=== PATIENT | male | born 1945 | race Caucasian/White ===

== ENCOUNTER 2017-05-11 10:00 | Emergency (ER) | payer MEDICARE, OTHER, SELFPAY ==
[~2017-05-11] VITALS: Ht 170.2 cm; Wt 84.5 kg
[2017-05-11] MEDS ORDERED: SODIUM CHLORIDE 0.9% 1,000 ML IV ONE (11:35)
[2017-05-11] MEDS ORDERED: SODIUM CHLORIDE FLUSH 10ML SYR IVF ONE (12:00)
[2017-05-11] MEDS ORDERED: SODIUM CHLORIDE 0.9% 1,000ML IVBOLUS ONE (12:00)
[2017-05-11 12:07] LABS: BASOPHILS # (AUTO) 0.03 x10^3/uL (0-0.1); BASOPHILS % (AUTO) 0 % (0-1); EOSINOPHILS # (AUTO) 0.14 x10^3/uL (0-0.4); EOSINOPHILS % (AUTO) 2 % (1-7); LYMPHOCYTES # (AUTO) 1.81 x10^3/uL (1-3.4); LYMPHOCYTES % (AUTO) 25 % (22-44); MD NO; MEAN CORPUSCULAR HEMOGLOBIN 31.8 pg (27.5-34.5); MEAN CORPUSCULAR HGB CONC 33.8 g/dL (33.2-36.2); MEAN CORPUSCULAR VOLUME 94.1 fL (81-97); MEAN PLATELET VOLUME 8.4 fL (7.4-10.4); MONOCYTES # (AUTO) 0.66 x10^3/uL (0.2-0.8); MONOCYTES % (AUTO) 9 % (2-9); NEUTROPHILS # (AUTO) 4.74 x10^3/uL (1.8-6.8); NEUTROPHILS % (AUTO) 64 % (42-75); PLATELET COUNT 214 x10^3/uL (130-400); RED BLOOD COUNT 4.76 x10^6/uL (4.38-5.82); RED CELL DISTRIBUTION WIDTH 13.9 % (9.4-14.8)
[2017-05-11 12:37] LABS: ALANINE AMINOTRANSFERASE 20 U/L (12-78); ALBUMIN 3.7 g/dL (3.4-5.0); ALKALINE PHOSPHATASE 87 U/L (45-117); ANION GAP 9 mmol/L (5-15); BILIRUBIN,TOTAL 0.7 mg/dL (0.2-1.0); CALCIUM 8.6 mg/dL (8.5-10.1); CHLORIDE 112 mmol/L (98-107); CREATININE 0.87 mg/dL (0.7-1.3); TOTAL PROTEIN 6.9 g/dL (6.4-8.2)
[2017-05-11] MEDS ORDERED: OMNIPAQUE 350 MG/ML, 100ML BOTTLE ONE ×2 (13:10→13:15)
[2017-05-11 14:27] VITALS: BP 147/82
== END 2017-05-11 14:30 | disposition home or self-care (01) ==
LOC: ED 12:21
DX: R10.30 Lower abdominal pain, unspecified (principal); R19.7 Diarrhea, unspecified; J44.9 Chronic obstructive pulmonary disease, unspecified; I10 Essential (primary) hypertension; G20 Parkinson's disease
CPT/HCPCS: 36415; 74177; 80053; 83605; 85025; 87040; 96360; 96361; 99285; J7030; Q9967

== ENCOUNTER 2018-10-01 17:31 | Inpatient (IN) | payer MEDICARE, OTHER ==
[~2018-10-01] VITALS: Ht 172.7 cm; Wt 89.4 kg
--- NOTE | 2018-10-01 17:44 | NUR ---
BIB [facility] FOR CHEST PRESSURE WITH ASSOCIATED NAUSEA, SOB. RECENTLY STOPPED SPIRONOLACTONE BC PCP TOLD PT BP WAS LOW. GIVEN NS 250, ASA, ZOFRAN, NITRO WITH CP RELIEF. PT STATES "I KEEP TELLING THEM MY MEDICATIONS ARE MAKING ME SICK BUT NOONE WILL CHANGE THEM". PT PLACED ON MONITOR. VSS. EKG DONE AND PA AT BEDSIDE
[2018-10-01 18:18] LABS: BASOPHILS # (AUTO) 0.05 x10^3/uL (0-0.1); BASOPHILS % (AUTO) 1 % (0-1); EOSINOPHILS # (AUTO) 0.27 x10^3/uL (0-0.4); EOSINOPHILS % (AUTO) 4 % (1-7); LYMPHOCYTES # (AUTO) 1.79 x10^3/uL (1-3.4); LYMPHOCYTES % (AUTO) 26 % (22-44); MD NO; MEAN CORPUSCULAR HEMOGLOBIN 32.1 pg (27.5-34.5); MEAN CORPUSCULAR HGB CONC 33.2 g/dL (33.2-36.2); MEAN CORPUSCULAR VOLUME 96.6 fL (81-97); MEAN PLATELET VOLUME 8.6 fL (7.4-10.4); MONOCYTES # (AUTO) 0.71 x10^3/uL (0.2-0.8); MONOCYTES % (AUTO) 10 % (2-9); NEUTROPHILS # (AUTO) 4.11 x10^3/uL (1.8-6.8); NEUTROPHILS % (AUTO) 59 % (42-75); PLATELET COUNT 220 x10^3/uL (130-400); RED BLOOD COUNT 4.48 x10^6/uL (4.38-5.82); RED CELL DISTRIBUTION WIDTH 13.9 % (9.4-14.8)
[2018-10-01 18:27] LABS: ALBUMIN 3.4 g/dL (3.4-5.0); ANION GAP 7 mmol/L (5-15); CALCIUM 8.3 mg/dL (8.5-10.1); CHLORIDE 114 mmol/L (98-107)
[2018-10-01 18:32] LABS: ALANINE AMINOTRANSFERASE 26 U/L (12-78); ALKALINE PHOSPHATASE 74 U/L (45-117); BILIRUBIN,TOTAL 0.3 mg/dL (0.2-1.0); CREATININE 1.27 mg/dL (0.7-1.3); TOTAL PROTEIN 6.6 g/dL (6.4-8.2); TROPONIN I < 0.015 ng/mL (0.000-0.045)
[2018-10-01] MEDS ORDERED: OMNIPAQUE 350 MG/ML, 100ML BOTTLE ONE (18:50)
--- NOTE | 2018-10-01 18:56 | NUR ---
PT TO CT
--- NOTE | 2018-10-01 19:18 | NUR ---
Break RN: patient back from CT scan. awaiting result.
--- NOTE | 2018-10-01 19:26 | NUR ---
ERP at bedside for re-evaluation.
--- NOTE | 2018-10-01 20:09 | NUR ---
REPORT TO MELINDA FRANK
[2018-10-01] MEDS ORDERED: TAMS-11 PO (20:14)
[2018-10-01] MEDS ORDERED: ATOR40TA78 PO (20:14)
[2018-10-01] MEDS ORDERED: SPIR25TA5 PO (20:14)
[2018-10-01] MEDS ORDERED: ASPI-515 PO (20:14)
[2018-10-01] MEDS ORDERED: VERA120T5 PO (20:14)
[2018-10-01] MEDS ORDERED: BENA40TA3 PO (20:14)
[2018-10-01] MEDS ORDERED: FLUT9.9S NS (20:14)
[2018-10-01] MEDS ORDERED: TIOT18CA INH (20:15)
[2018-10-01 20:58] VITALS: BP 131/72
[2018-10-01] MEDS ORDERED: LIDODERM 5% PATCH TD PRN (23:30)
[2018-10-01] MEDS ORDERED: hydrALAzine 20 MG/ML, 1ML IVPush PRN (23:30)
[2018-10-01] MEDS ORDERED: DOCUSATE 100 MG CAPSULE PO PRN (23:30)
[2018-10-01] MEDS ORDERED: TEMAZEPAM 15 MG CAPSULE PO PRN (23:30)
[2018-10-01] MEDS ORDERED: ONDANSETRON ODT 4 MG PO PRN (23:30)
[2018-10-01] MEDS: ACETAMINOPHEN 325 MG TABLET PO PRN (23:58)
[2018-10-01] MEDS: ATORVASTATIN 40 MG TABLET PO SCH (23:58)
[2018-10-01] MEDS: HEPARIN 5,000 UNITS/ML, 1ML SQ SCH (23:58)
[2018-10-02 01:05] LABS: TROPONIN I < 0.015 ng/mL (0.000-0.045)
[2018-10-02] MEDS: ALBUTEROL/IPRATROPIUM 2.5MG/0.5MG, 3 ML NPPB SCH ×2 (01:30→07:30)
[2018-10-02 01:35] VITALS: BP 108/67
[2018-10-02 06:54] LABS: BASOPHILS # (AUTO) 0.03 x10^3/uL (0-0.1); BASOPHILS % (AUTO) 1 % (0-1); EOSINOPHILS # (AUTO) 0.24 x10^3/uL (0-0.4); EOSINOPHILS % (AUTO) 5 % (1-7); LYMPHOCYTES # (AUTO) 1.58 x10^3/uL (1-3.4); LYMPHOCYTES % (AUTO) 31 % (22-44); MD NO; MEAN CORPUSCULAR HEMOGLOBIN 32.6 pg (27.5-34.5); MEAN CORPUSCULAR HGB CONC 33.6 g/dL (33.2-36.2); MEAN CORPUSCULAR VOLUME 96.9 fL (81-97); MEAN PLATELET VOLUME 8.3 fL (7.4-10.4); MONOCYTES # (AUTO) 0.61 x10^3/uL (0.2-0.8); MONOCYTES % (AUTO) 12 % (2-9); NEUTROPHILS # (AUTO) 2.68 x10^3/uL (1.8-6.8); NEUTROPHILS % (AUTO) 52 % (42-75); PLATELET COUNT 218 x10^3/uL (130-400); RED BLOOD COUNT 4.44 x10^6/uL (4.38-5.82)
[2018-10-02 07:15] LABS: ANION GAP 6 mmol/L (5-15); CALCIUM 8.7 mg/dL (8.5-10.1); CHLORIDE 113 mmol/L (98-107)
[2018-10-02 07:21] LABS: CREATININE 1.07 mg/dL (0.7-1.3); TROPONIN I < 0.015 ng/mL (0.000-0.045)
[2018-10-02 07:27] LABS: THYROID STIMULATING HORMONE 0.466 mIU/L (0.358-3.740)
[2018-10-02 07:39] VITALS: BP 116/79
[2018-10-02] MEDS: ASPIRIN 81 MG TABLET EC PO SCH (08:43)
[2018-10-02] MEDS: SPIRONOLACTONE 25 MG TABLET PO SCH (08:44)
[2018-10-02] MEDS ORDERED: BENAZEPRIL 10 MG TABLET ONE (08:50)
[2018-10-02] MEDS: HEPARIN 5,000 UNITS/ML, 1ML SQ SCH ×2 (08:55→15:55)
[2018-10-02] MEDS ORDERED: BENAZEPRIL 20 MG TABLET PO SCH (09:00)
[2018-10-02] MEDS ORDERED: TAMSULOSIN 0.4 MG CAP.ER.24H PO SCH (09:00)
[2018-10-02] MEDS ORDERED: VERAPAMIL 120MG TABLET PO SCH (09:00)
[2018-10-02 12:48] VITALS: BP 129/71
[2018-10-02] MEDS ORDERED: ALBUTEROL/IPRATROPIUM 2.5MG/0.5MG, 3 ML NPPB PRN (15:00)
[2018-10-02] MEDS: ACETAMINOPHEN 325 MG TABLET PO PRN (15:54)
[2018-10-02] MEDS: FLUTICASONE NASAL SPRAY 16GM NAS SCH (15:55)
[2018-10-02 20:27] VITALS: BP 135/81
[2018-10-02] MEDS: ATORVASTATIN 40 MG TABLET PO SCH (21:03)
[2018-10-03] MEDS: HEPARIN 5,000 UNITS/ML, 1ML SQ SCH ×2 (00:34→09:31)
[2018-10-03 01:31] VITALS: BP 132/80
[2018-10-03 07:49] VITALS: BP 145/91
[2018-10-03 07:52] VITALS: BP 126/85
[2018-10-03 07:54] VITALS: BP 143/88
[2018-10-03] MEDS ORDERED: VERAPAMIL ER 180MG TABLET.ER PO SCH (09:00)
[2018-10-03] MEDS: FLUTICASONE NASAL SPRAY 16GM NAS SCH (09:32)
[2018-10-03] MEDS: SPIRONOLACTONE 25 MG TABLET PO SCH (09:33)
[2018-10-03] MEDS: ASPIRIN 81 MG TABLET EC PO SCH (09:33)
[2018-10-03 13:57] VITALS: BP 140/87
[2018-10-03] MEDS ORDERED: OMEP-110 PO (13:57)
[2018-10-03] MEDS ORDERED: VERA180T6 PO (13:57)
[2018-10-03] MEDS ORDERED: CARV3.1212 PO (14:11)
== END 2018-10-03 14:45 | disposition home or self-care (01) | DRG 74 ==
LOC: ED 18:38 → EDIP 19:45 → 5SO 20:29 → DCLOUNGE 10-03 14:37
PROVIDERS: ADMIT Family Medicine; ATTEND Family Medicine
DX: G90.9 Disorder of the autonomic nervous system, unspecified (principal); J98.11 Atelectasis; I47.2 Ventricular tachycardia; I50.32 Chronic diastolic (congestive) heart failure; I34.0 Nonrheumatic mitral (valve) insufficiency; I49.3 Ventricular premature depolarization; J44.9 Chronic obstructive pulmonary disease, unspecified; K44.9 Diaphragmatic hernia without obstruction or gangrene; R07.9 Chest pain, unspecified; I11.0 Hypertensive heart disease with heart failure; E78.5 Hyperlipidemia, unspecified; G20 Parkinson's disease; I25.10 Atherosclerotic heart disease of native coronary artery without angina pectoris; I25.2 Old myocardial infarction; Z82.49 Family history of ischemic heart disease and other diseases of the circulatory system; Z87.891 Personal history of nicotine dependence; Z87.01 Personal history of pneumonia (recurrent); Z79.82 Long term (current) use of aspirin; Z79.899 Other long term (current) drug therapy; Z88.8 Allergy status to other drugs, medicaments and biological substances; Z88.7 Allergy status to serum and vaccine; Z90.49 Acquired absence of other specified parts of digestive tract
CPT/HCPCS: 36415; 70450; 71045; 71275; 80048; 80053; 83036; 83735; 83880; 84145; 84443; 84484; 85025; 93005; 93880; G0378; J1644; Q9967